=== PATIENT | female | born 1955 | race African-American/Black ===

== ENCOUNTER 2018-02-09 15:09 | Emergency (ER) | payer MEDICAID ==
[~2018-02-09] VITALS: Ht 167.6 cm; Wt 78.5 kg
[~2018-02-09 15:09] MED LIST: ASPIRIN81 MG ORAL; ATENOLOL50 MG ORAL; DEPAKOTE500 MG PO; HYDROCHLOROTHIA25 MG ORAL; IBUPROFEN600 MG ORAL; NORCO1 EA ORAL; NORVASC10 MG ORAL; PREDNISONE20 MG ORAL; TRAMADOL HCL50 MG ORAL
[2018-02-09 15:28] VITALS: BP 141/96
--- NOTE | 2018-02-09 15:54 | Emergency Room Report ---
History of Present Illness General Chief Complaint: Lower Back Pain or Injury Source: Patient (Anup Benton) Present Illness HPI 62-year-old female patient presents to ER complaining of low back pain. Patient works history of back surgery in August 2016. Patient reports that she has fallen 4 times since then. Patient reports that a week and half ago she fell off her chair when it broke and onto her back. Patient reports that pain symptoms and slowly increased during that time. Patient reports pain is radiating down her legs bilaterally, reports hx of sciatica and similar symptoms. Patient denies bowel or bladder problems. Patient reports she normally takes [place] for pain, cannot take ibuprofen for pain, can take Tylenol for pain. Patient requesting pain medication for relief of pain symptoms. Patient denies fever, chest pain, shortness of breath, abdominal pain. Patient denies history of IV drug use or cancer. reports that she is only able to take a few steps before needing to sit down, has [address] her [address] of living. reports she has an appointment with her primary care doctor on the of this month.reports she has not seen pain management. (Anup Benton) Allergies: Coded Allergies: QUETIAPINE FUMARATE (Verified Allergy, Severe, Altered Mental Status, 06/18) SHELLFISH DERIVED (Verified Allergy, Severe, hives, 06/20/13) Uncoded Allergies: seafood (Allergy, Severe, hives, 06/20/13) Patient History Past Medical History: see triage record Last Menstrual Period: Hysterectomy Now: No Reviewed Nursing Documentation: PMH: Agreed; PSxH: Agreed (Anup Benton) Nursing Documentation-PMH Past Medical History: No History, Except For Hx Cardiac Problems: Yes - Enlarged heart Hx Hypertension: Yes - Back surgery 2017 Hx Pacemaker: No Hx Asthma: Yes Hx COPD: No Hx Diabetes: No Hx Cancer: No Hx Dialysis: No Hx Neurological Problems: Yes Hx Cerebrovascular Accident: No Hx Seizures: No (Anup Benton) Review of Systems All Other Systems: negative except mentioned in HPI (Anup Benton) Physical Exam Vital Signs Date Time Temp Pulse Resp B/P (MAP) Pulse Ox O2 Delivery O2 Flow Rate FiO2 18 15:12 98.0 95 18 141/96 99 Room Air 98.1 Sp02 EP Interpretation: reviewed, normal General Appearance: well appearing, no apparent distress, alert, GCS 15, non- toxic Head: normocephalic, atraumatic Eyes: bilateral eye normal inspection, bilateral eye PERRL ENT: hearing grossly normal, normal pharynx, no angioedema, normal voice, uvula midline, moist mucus membranes Neck: full range of motion Respiratory: lungs clear, normal breath sounds, no rhonchi, no respiratory distress, no accessory muscle use, no wheezing, speaking full sentences Cardiovascular #1: regular rate, rhythm, no edema Gastrointestinal: non tender, soft, no mass, non-distended, no guarding, no rebound Genitourinary: no CVA tenderness Musculoskeletal: back normal, digits/nails normal, normal range of motion, non- tender, other - NVI, no bony stepoff, no deformity Neurologic: alert, oriented x3, responsive, motor strength/tone normal, sensory intact, other - SLR positive Psychiatric: mood/affect normal Skin: no rash (Anup Benton) Medical Decision Making PA Attestation Dr. Ernandez is my supervising Physician whom patient management has been discussed with. (Anup Benton) Diagnostic Impression: Primary Impression: Low back pain Qualified Codes: M54.5 - Low back pain ER Course Pt presents to ED c/o back pain. DDX considered but are not limited to sprain, strain, cauda equine, epidural abscess, AAA, spinal cord compression, kidney stones. Low suspicion for cauda equina, no bowel or bladder incontinence or retention. VITAL SIGNS are WNL, patient is afebrile Ordered pain medication, imaging, labs. ER COURSE: Pain medication provided. Imaging ordered. Xray shows lumbar spine shows no acute fracture per the preliminary reading. discussed results with Dr. Ernandez agrees with reading. Patient was walking throughout ER, able ambulate independently. Patient reports family members at home able to help her get around her climbs stairs needed. Patient reports relief of pain symptoms. CURES report shows multiple prescriptions provided in previous months. Informed patient will not be able to provide her with Rx for opioid pain medication. follow with primary care provider to discuss need for treatment for back pain and possible treatment sciatica. Followup with pain management and/or PT. Request referral from PCP. Followup with PCP for further MRI and/or CT imaging as needed. Patient reports she will followup at scheduled appointment, will contact PCP tomorrow for referrals. DISCHARGE: -Rx provided for Tylenol -Rx provided for Lidocaine patch At this time pt. is stable for d/c to home. At this time patient is resting comfortably, in no acute distress, nontoxic appearing, smiling and talking without difficulty. Will provide printed patient care instructions, and any necessary prescriptions. Patient instructed to follow with primary care provider for further treatment and referral as needed. Care plan and follow up instructions have been discussed with the patient prior to discharge. Patient reports understanding and agreement to treatment plan. Patient questions asked and answered. ER precautions given, patient instructed to return to ER immediately for any new or worsening of symptoms. - Please note that this Emergency Department Report was dictated using [employer] grinder operator technology software, occasionally this can lead to erroneous entry secondary to interpretation by the dictation equipment. ([email or web address]) Other X-Ray Diagnostic Results Other X-Ray Diagnostic Results : X-Ray ordered: lumbar spine # of Views/Limited Vs Complete: 3 View Indication: Pain EP Interpretation: Yes PA Xray: Interpretation reviewed, by supervising MD, and agrees with findings. Interpretation: no dislocation, no soft tissue swelling, no fractures, other - metal rods and screws consistent with previous surgical history Impression: No acute disease PA Scribe Text Miguelangel Benton PA-C ([email or web address]) Other X-Ray Diagnostic Results : Electronically Signed by: Scribe documentation reviewed by me and is accurate, Fredi Ernandez MD. (Fredi Ernandez M.D.) Last Vital Signs Date Time Temp Pulse Resp B/P (MAP) Pulse Ox O2 Delivery O2 Flow Rate FiO2 02/09/18 15:28 98.1 18 141/96 99 Room Air 98.1 02/09/18 15:12 95 ([email or web address] [email or web address]) Status: improved (Fredi Ernandez M.D.) Disposition: HOME, SELF-CARE Condition: Stable Scripts Lidocaine (Lidocaine) 1 Each Adh..patch 700 MG TP DAILY for 7 Days, #7 PATCH Prov: Anup Benton 02/09/18 Acetaminophen* (TYLENOL EXTRA STRENGTH*) 500 Mg Tablet 500 MG ORAL Q8H PRN for Prn Headache/Temp > 101, #30 TAB 0 Refills Prov: Anup Benton 02/09/18 Patient Instructions: Back Pain, Adult Additional Instructions: Followup with primary care provider in 3 -5 days. Patient instructed on rest, ice and heat for back pain. Take medications as directed. Patient questions asked and answered. ER precautions given, patient instructed to return to ER immediately for any new or worsening of symptoms. Anup Benton February 09, 2018 15:54 Fredi Ernandez M.D. February 10, 2018 04:51
[2018-02-09] MEDS ORDERED: Norco 5mg/325mg tab ORAL ONE (16:00)
[2018-02-09] MEDS ORDERED: TYLENOL EXTRA500 MG ORAL (17:20)
[2018-02-09] MEDS ORDERED: LIDOCAINE700 M1 TP (17:32)
[2018-02-09 17:40] VITALS: BP 138/94
--- NOTE | 2018-02-10 09:44 | Diagnostic Imaging Report ---
Indication: Back pain Comparison: None Findings: 3 views of the lumbar spine were obtained. Posterior lumbar fusion noted pedicle screws and fusion rods in the lower part of the lumbar spine at L4, L5 and S1. Hardware alignment and position appear unremarkable. Laminectomy also noted with the grafted bone laterally. There is a mild anterolisthesis with narrowing of the disc at L3-4. Bones are osteopenic. No fracture is identified. There is slight anterior wedging of the T12 vertebra. IMPRESSION: Mild anterior wedging of the T12 vertebra. Acuity of this is unknown. Osteoporosis. Lower lumbar fusion as described above
== END 2018-02-09 17:40 | disposition home or self-care (01) ==
LOC: EMR 15:52
DX: M54.5 Low back pain (principal); I10 Essential (primary) hypertension; J45.909 Unspecified asthma, uncomplicated; M81.0 Age-related osteoporosis without current pathological fracture; Z98.1 Arthrodesis status; Z91.013 Allergy to seafood
CPT/HCPCS: 72020; 99284